=== PATIENT | male | born 1980 | race African-American/Black ===

== ENCOUNTER 2018-02-17 14:42 | Emergency (ER) | payer OTHER ==
[~2018-02-17] VITALS: Ht 182.9 cm; Wt 113.4 kg
[~2018-02-17 14:42] MED LIST: NOHOMEMEDICATIONS; NORCO 5-325 TA1 EACH PO; PRILOSEC20 MG PO; ULTRAM 50MG TAB50 MG PO
[2018-02-17] MEDS ORDERED: VALIUM5 MG PO (15:49)
[2018-02-17] MEDS ORDERED: IBUPROFEN 600600 M1 PO (15:49)
[2018-02-17 16:23] VITALS: BP 147/88
== END 2018-02-17 16:15 | disposition home or self-care (01) ==
LOC: ER 14:42
DX: M43.6 Torticollis (principal)